=== PATIENT | female | born 1955 | race Caucasian/White ===

== ENCOUNTER 2016-09-12 19:14 | Emergency (ER) | payer MEDICARE, OTHER ==
[2017-01-13] MEDS ORDERED: BENADRYL25 MG PO (16:06)
[2017-01-13] MEDS ORDERED: VENTOLIN HFA IN18 GM INH (16:06)
[2017-01-13] MEDS ORDERED: ACETAMINOPHEN325 MG PO (16:06)
[2017-01-13] MEDS ORDERED: NORCO 5-325 TA1 EACH PO (16:07)
[2017-01-13] MEDS ORDERED: ATIVAN0.5 MG PO (16:07)
[2017-01-13] MEDS ORDERED: DULERA 200 MCG8.8 GM INH (16:07)
[2017-01-13] MEDS ORDERED: CLARITIN10 MG PO (16:07)
[2017-01-13] MEDS ORDERED: NEURONTIN100 MG PO (16:08)
[2017-01-13] MEDS ORDERED: CERTAGEN1 EACH PO (16:08)
[2017-01-13] MEDS ORDERED: SENOKOT8.6 MG PO (16:08)
[2017-01-13] MEDS ORDERED: SYNTHROID75 MCG PO (16:08)
[2017-01-13] MEDS ORDERED: NEURONTIN100 M1 PO (16:08)
[2017-01-13] MEDS ORDERED: GLUCOPHAGE1000 MG PO (16:09)
[2017-01-13] MEDS ORDERED: PEPCID AC20 MG PO (16:09)
[2017-01-13] MEDS ORDERED: SPIRIVA 18MCG18 MCG INH (16:09)
[2017-01-13] MEDS ORDERED: PAXIL40 MG PO (16:09)
[2017-01-13] MEDS ORDERED: AUGMENTIN 875-1 EACH PO (16:49)
== END 2016-09-12 21:04 | disposition home or self-care (01) ==
LOC: FER 19:14
DX: R04.0 Epistaxis (principal); J44.9 Chronic obstructive pulmonary disease, unspecified; Z88.1 Allergy status to other antibiotic agents; Z88.2 Allergy status to sulfonamides; Z99.81 Dependence on supplemental oxygen
CPT/HCPCS: 99283